=== PATIENT | female | born 1955 | race Caucasian/White ===

== ENCOUNTER 2016-11-23 10:18 | Emergency (ER) | payer SELFPAY ==
[2016-11-23] MEDS: ASPIRIN 81 MG CHEW TAB PO ONE (10:47)
[2016-11-23 11:11] LABS: EOSINOPHILS % 3.9 % (0.0-6.8); MEAN CORPUSCULAR HEMOGLOBIN 30.6 pg (28.0-34.0); MEAN CORPUSCULAR VOLUME 89.3 fl (80.0-100.0); MONOCYTES % 4.9 % (0.0-11.0); NEUTROPHILS # 6.7 # k/uL (1.4-7.7)
[2016-11-23 11:13] LABS: eGFR (African) > 60; eGFR (Non-African) > 60
--- NOTE | 2016-11-23 11:31 | Diagnostic Imaging Report ---
[facility] [address] [facility].[address] [id number] Report Submission Date: Nov 23, 2016 11:30:26 AM CDT Patient Study Name: SAL DOBBS Date: Nov 23, 2016 11:00:12 AM CDT Modality Type: CR Gender: F Description: CHEST : 59 Institution: [facility] Physician: LECNHO LOZA HISTORY: 61-year-old female with chest pain. COMPARISON: None available TECHNIQUE: Single portable AP view of the chest was performed. FINDINGS: No pneumothorax, consolidative infiltrates, or pulmonary edema. The heart is not enlarged. There are postoperative changes of left proximal humeral fixation. IMPRESSION: 1. No acute cardiopulmonary process. 2. Postoperative changes of left proximal humeral fixation. Electronically signed on Nov 23, 2016 11:30:26 AM CDT by: Foster CASE
--- NOTE | 2016-11-23 12:03 | ED Physician Documentation ---
Chest Pain - HISTORIAN Historian: patient - HPI Stated Complaint: CHEST/JAW PAIN Chief Complaint: Chest Pain Additional Information: sharp stabbing pain in R jaw, R substernal shooting thru to her back. sudden onset while sitting, lasted 20 minutes. Several similar episodes in past. No work up because went away. now has subsided. has HTN, high Chol. Has bed acid reflux, but only takes prilosec PRN. has indigestion with acid/spicy foods. Onset: minutes Timing: sudden onset, better Duration: other (20 minutes) Last known Well Date: 11/23/16 Last Known Well Time: 10:50 Context: rest Severity: mild Quality: sharp, stabbing Chest Pain Radiation: back Chest Pain Signs/Symptoms: denies: nausea, vomiting, diaphoresis, dizziness, tachypnea, tachycardia, palpitations Worsened By: nothing Relieved By: nothing Further Comments: no - ROS CONST: none MS/LYMPH: none GI/: none EYES/ENT: none SKIN/ENDO: none NEURO/PSYCH: none - PAST HX NV risk factors: hypertension, hyperlipidemia DVT/PE Risk Factors: none TAD/AAA risk factors: none Neuro deficit: none GI disease: GERD Lung disease: none Surgeries/Procedures: none Allergies/Adverse Reactions: Allergies Allergy/AdvReac Type Severity Reaction Status Date / Time No Known Allergies Allergy Verified 11/23/16 10:45 Home Medications: Ambulatory Orders Medication Instructions Recorded Diclofenac Sodium 75 mg PO TID 11/23/16 Lisinopril/Hydrochlorothiazide 1 each PO BID 11/23/16 [Zestoretic 20-25 mg Tablet] Multivitamin [Zoo Chews] 1 each PO D 11/23/16 Omeprazole [Prilosec] 20 mg PO D 11/23/16 PARoxetine HCL [Paxil] 20 mg PO QD 11/23/16 - SOCIAL HX Smoking History: non-smoker Alcohol Use: occasionally Drug Use: none - FAMILY HX Family HX: none - VITAL SIGNS Vital Signs: Vital Signs Temp Pulse Resp BP Pulse Ox 98.4 F 56 L 16 162/92 96 11/23/16 10:18 11/23/16 10:18 11/23/16 10:18 11/23/16 10:18 11/23/16 10:18 - REVIEWED ASSESSMENTS Nursing Assessment Reviewed: Yes Vitals Reviewed: Yes ED Results Lab/Radiology - Lab Results Lab Results: labs normal xray normal pain gone I spoke to her about follow up testing U/S for gallbladder cardiac stress testing as well. she will discuss with her PCP - Orders Orders: ED Orders Category Date Time Status Continuous EKG monitoring Q30M Care 11/23/16 10:45 Ordered Continuous Pulse Oximetry Q30M Care 11/23/16 10:45 Ordered CHEST 1 VIEW [RAD] Stat Exams 11/23/16 10:45 Ordered AMYLASE Routine Lab 11/23/16 Ordered BNP [NT-proBNP] Stat Lab 11/23/16 Ordered CBC/PLATELET/DIFF Routine Lab 11/23/16 10:45 Ordered CMP Routine Lab 11/23/16 10:45 Ordered CREATINE KINASE Routine Lab 11/23/16 10:45 Ordered LIPASE Routine Lab 11/23/16 Ordered TROPONIN I (cTnI) Stat Lab 11/23/16 10:45 Ordered Aspirin Med 11/23/16 10:45 Once 324 mg PO NOW ONE Oxygen Daily Oxygen 11/23/16 10:45 Ordered EKG WITH COMPARISON Stat Ther 11/23/16 10:45 Ordered Chest Pain Physical Exam - EXAM General Appearance: no acute distress, alert EENT: eye inspection normal, ENT inspection normal, pharynx normal, no signs of dehydration Neck: nml inspection, no carotid bruit. No: JVD present, lymphadenopathy Respiratory: no resp. distress, nml breath sounds. No: resp.distress, manifests distinct pain on movement, decreased air movement CVS: bradycardia Abdomen: soft, no distension (tender epigastric) Skin: warm/dry, normal color Extremities: non-tender, normal range of motion, no evidence of injury, no edema Neuro: oriented X3, mood/affect nml, cognition normal Discharge Clincal Impression: Biliary dyskinesia, Acute epigastric pain Referrals: Stephanie Ohara MD [Primary Care Provider] - 2 Days Home Medications: Ambulatory Orders Diclofenac Sodium 75 mg PO TID 11/23/16 Lisinopril/Hydrochlorothiazide [Zestoretic 20-25 mg Tablet] 1 each PO BID Multivitamin [Zoo Chews] 1 each PO D 11/23/16 Omeprazole [Prilosec] 20 mg PO D 11/23/16 PARoxetine HCL [Paxil] 20 mg PO QD 11/23/16 Condition: Stable Disposition: 01 HOME, SELF-CARE Decision to Admit: NO Date of Decison to Admit: 11/23/16 Decision Time: 12:02
[2016-11-23 12:13] VITALS: BP 135/68
[2016-11-23 19:02] LABS: LIPASE 21 U/L (13-60)
== END 2016-11-23 12:10 | disposition home or self-care (01) ==
LOC: ED 10:18
DX: K82.8 Other specified diseases of gallbladder (principal); R10.13 Epigastric pain
CPT/HCPCS: 71010; 80053; 82150; 82550; 83690; 83880; 84484; 85025; 99283; S1016